=== PATIENT | female | born 1980 | race Hispanic/Latino ===

== ENCOUNTER 2020-06-03 07:00 | Day surgery (SDC) | payer BC ==
[2020-06-03] VITALS (9 sets, daily range): BP systolic 106–122; BP diastolic 65–85
[~2020-06-03] VITALS: Ht 162.6 cm; Wt 113.4 kg
[2020-06-03] MEDS ORDERED: FLUO40CA7 PO (07:48)
[2020-06-03] MEDS ORDERED: SODIUM CHLORIDE 0.9% 1000ML 1,000 ML IV ONE (07:49)
[2020-06-03] MEDS ORDERED: PROPOFOL 10 MG/ML 20ML VIAL IV ONE (08:37)
[2020-06-03] MEDS ORDERED: MIDAZOLAM HCL 1 MG/ML 2ML VIAL ONE (08:38)
== END 2020-06-03 09:55 | disposition home or self-care (01) ==
LOC: DAH 07:00
PROVIDERS: ATTEND Surgery
DX: K21.9 Gastro-esophageal reflux disease without esophagitis (principal); Z20.822 Contact with and (suspected) exposure to COVID-19; E66.01 Morbid (severe) obesity due to excess calories; G47.30 Sleep apnea, unspecified; Z79.899 Other long term (current) drug therapy
CPT/HCPCS: 43235; A4215 ×2; A4221; A4222; A4223; A4606; A4620; A4657; A4663; C9803; J2250; J2704; J7030; U0003